=== PATIENT | female | born 1970 | race African-American/Black ===

== ENCOUNTER 2017-01-18 17:41 | Emergency (ER) | payer MEDICAID ==
[~2017-01-18] VITALS: Ht 175.3 cm; Wt 92.8 kg
[~2017-01-18 17:41] MED LIST: ESCI5TAB PO; ESTR1PAT79 TP; ESTRODIOL; IBUP-1222 PO; IBUP-1223 PO; IBUP200T48 PO; IRBE1TAB13 PO; NONE PER PT; OXYC1TAB9 PO; PROM25SU34 RC; TRAM300T15 PO; [UNRECOGNIZED DRUG - REMARK] VG
[2017-01-18] MEDS ORDERED: HYDROmorphone 1 MG/ML, 1ML IM STA (19:34)
[2017-01-18] MEDS ORDERED: HYDROmorphone 1 MG/ML, 1ML ONE (19:36)
[2017-01-18 20:09] VITALS: BP 170/98
[2017-01-18] MEDS ORDERED: HYDROmorphone 1 MG/ML, 1ML IM ONE (20:30)
== END 2017-01-18 20:19 | disposition home or self-care (01) ==
LOC: ED 20:13
DX: S29.012A Strain of muscle and tendon of back wall of thorax, initial encounter (principal); G89.29 Other chronic pain; I10 Essential (primary) hypertension; M54.31 Sciatica, right side; Z90.710 Acquired absence of both cervix and uterus; X58.XXXA Exposure to other specified factors, initial encounter; Y93.89 Activity, other specified; Y92.89 Other specified places as the place of occurrence of the external cause; Y99.8 Other external cause status
CPT/HCPCS: 72110; 96372; 99284; J1170

== ENCOUNTER → 2017-01-26 | Outpatient (CLI) | payer MEDICAID | END | disposition home or self-care (01) | LOC: CFH 15:08 | PROVIDERS: ATTEND Internal Medicine | DX: M51.24 Other intervertebral disc displacement, thoracic region (principal); M54.16 Radiculopathy, lumbar region | CPT/HCPCS: 72146 ==

== ENCOUNTER 2017-02-23 21:38 | Emergency (ER) | payer MEDICAID ==
[~2017-02-23] VITALS: Ht 175.3 cm; Wt 90.4 kg
[2017-02-23] MEDS ORDERED: DIAZEPAM 5 MG TABLET PO ONE (22:30)
[2017-02-23] MEDS ORDERED: HYDROcodone/APAP 5/325 TABLET ONE (22:30)
[2017-02-23] MEDS ORDERED: DIAZEPAM 5 MG TABLET ONE (22:30)
[2017-02-23] MEDS ORDERED: HYDROcodone/APAP 5/325 TABLET PO ONE (22:30)
[2017-02-24 00:51] VITALS: BP 169/105
== END 2017-02-24 00:56 | disposition home or self-care (01) ==
LOC: ED 02-24 00:25
DX: S16.1XXA Strain of muscle, fascia and tendon at neck level, initial encounter (principal); S09.90XA Unspecified injury of head, initial encounter; I10 Essential (primary) hypertension; G89.29 Other chronic pain; V49.9XXA Car occupant (driver) (passenger) injured in unspecified traffic accident, initial encounter; Y93.89 Activity, other specified; Y92.410 Unspecified street and highway as the place of occurrence of the external cause; Y99.8 Other external cause status
CPT/HCPCS: 70450; 72125; 99284

== ENCOUNTER → 2017-09-21 | Outpatient (CLI) | payer MEDICAID ==
[~2017-09-21] MED LIST changes: -IBUP200T48 PO; +IBUP200T49 PO
== END ==
LOC: CFH 15:29
PROVIDERS: ATTEND Nurse Practitioner
DX: M51.16 Intervertebral disc disorders with radiculopathy, lumbar region (principal)
CPT/HCPCS: 72120; 72148

== ENCOUNTER 2018-04-14 16:22 | Emergency (ER) | payer MEDICAID ==
[~2018-04-14] VITALS: Ht 175.3 cm; Wt 91.7 kg
[~2018-04-14 16:22] MED LIST changes: +OXYC-432 PO; -OXYC1TAB9 PO
[2018-04-14 17:12] LABS: BASOPHILS # (AUTO) 0.03 x10^3/uL (0-0.1); BASOPHILS % (AUTO) 1 % (0-1); EOSINOPHILS # (AUTO) 0.05 x10^3/uL (0-0.4); EOSINOPHILS % (AUTO) 1 % (1-7); LYMPHOCYTES # (AUTO) 1.81 x10^3/uL (1-3.4); LYMPHOCYTES % (AUTO) 29 % (22-44); MD NO; MEAN CORPUSCULAR HEMOGLOBIN 30.7 pg (27.0-34.8); MEAN CORPUSCULAR HGB CONC 33.1 g/dL (32.4-35.8); MEAN CORPUSCULAR VOLUME 92.8 fL (80-100); MEAN PLATELET VOLUME 9.2 fL (7.4-10.4); MONOCYTES % (AUTO) 5 % (2-9); NEUTROPHILS # (AUTO) 4.06 x10^3/uL (1.8-6.8); NEUTROPHILS % (AUTO) 65 % (42-75); PLATELET COUNT 256 x10^3/uL (130-400); RED BLOOD COUNT 4.74 x10^6/uL (3.82-5.3); RED CELL DISTRIBUTION WIDTH 14.1 % (9.6-15.2)
[2018-04-14 17:17] LABS: ALANINE AMINOTRANSFERASE 26 U/L (12-78); ANION GAP 4 mmol/L (5-15); CALCIUM 9.5 mg/dL (8.5-10.1); CHLORIDE 101 mmol/L (98-107); CREATININE 0.98 mg/dL (0.55-1.02)
[2018-04-14 17:19] LABS: ALKALINE PHOSPHATASE 135 U/L (45-117); BILIRUBIN,TOTAL 0.3 mg/dL (0.2-1.0); TOTAL PROTEIN 8.9 g/dL (6.4-8.2)
[2018-04-14] MEDS ORDERED: LABETALOL 5MG/ML, 20ML IVPush ONE (17:30)
[2018-04-14] MEDS ORDERED: LABETALOL 20 MG/4 ML ONE (17:30)
[2018-04-14] MEDS ORDERED: ONDANSETRON 2MG/ML, 2ML ONE (17:30)
[2018-04-14] MEDS ORDERED: CEFAZOLIN PMX 1GM/50ML 50 ML IV ONE (17:30)
[2018-04-14] MEDS ORDERED: SODIUM CHLORIDE FLUSH 10ML SYR IVF ONE (17:30)
[2018-04-14] MEDS ORDERED: ONDANSETRON 2MG/ML, 2ML IVPush ONE (17:30)
[2018-04-14] MEDS ORDERED: MORPHINE SULFATE 4 MG/ML, 1ML ONE ×2 (17:31→19:04)
[2018-04-14] MEDS ORDERED: POTASSIUM CHLORIDE 20 MEQ TAB.ER.PRT ONE (17:31)
[2018-04-14] MEDS ORDERED: CEFAZOLIN PMX 1GM/50ML 50 ML ONE (17:32)
[2018-04-14] MEDS: MORPHINE SULFATE 4 MG/ML, 1ML IVPush PRN ×2 (18:02→19:35)
[2018-04-14] MEDS ORDERED: POTASSIUM CHLORIDE 20 MEQ TAB.ER.PRT PO ONE (18:30)
[2018-04-14] MEDS ORDERED: MORPHINE SULFATE 4 MG/ML, 1ML IVPush ONE (19:00)
[2018-04-14] MEDS ORDERED: KETOROLAC 30 MG/1 ML IVPush ONE (19:00)
[2018-04-14] MEDS ORDERED: KETOROLAC 30 MG/1 ML ONE (19:04)
[2018-04-14 19:34] VITALS: BP 126/80
== END 2018-04-14 20:09 | disposition home or self-care (01) ==
LOC: ED 19:29
DX: L03.811 Cellulitis of head [any part, except face] (principal); L73.8 Other specified follicular disorders; I10 Essential (primary) hypertension; Z90.710 Acquired absence of both cervix and uterus
CPT/HCPCS: 36415; 70450; 80053; 85025; 93005; 96365; 96375; 96376; 99284; J0690; J1885; J2405

== ENCOUNTER 2018-05-21 12:57 | Emergency (ER) | payer MEDICAID ==
[~2018-05-21] VITALS: Ht 175.3 cm; Wt 91.9 kg
[~2018-05-21 12:57] MED LIST changes: +AMLO-150 PO; +POTASSIUM
[2018-05-21] MEDS ORDERED: DIPHENHYDRAMINE 50 MG/ML, 1ML IVPush ONE (14:00)
[2018-05-21] MEDS ORDERED: SODIUM CHLORIDE 0.9% 1,000ML IVBOLUS ONE (14:00)
[2018-05-21] MEDS ORDERED: SODIUM CHLORIDE FLUSH 10ML SYR IVF ONE (14:00)
[2018-05-21] MEDS ORDERED: METOCLOPRAMIDE 5 MG/ML, 2ML IVPush ONE (14:00)
[2018-05-21] MEDS ORDERED: KETOROLAC 30 MG/1 ML IVPush ONE (14:00)
[2018-05-21 14:08] LABS: BASOPHILS # (AUTO) 0.04 x10^3/uL (0-0.1); BASOPHILS % (AUTO) 1 % (0-1); EOSINOPHILS # (AUTO) 0.01 x10^3/uL (0-0.4); EOSINOPHILS % (AUTO) 0 % (1-7); LYMPHOCYTES # (AUTO) 1.14 x10^3/uL (1-3.4); LYMPHOCYTES % (AUTO) 22 % (22-44); MD NO; MEAN CORPUSCULAR HEMOGLOBIN 30.3 pg (27.0-34.8); MEAN CORPUSCULAR HGB CONC 32.8 g/dL (32.4-35.8); MEAN CORPUSCULAR VOLUME 92.6 fL (80-100); MEAN PLATELET VOLUME 10.4 fL (7.4-10.4); MONOCYTES # (AUTO) 0.16 x10^3/uL (0.2-0.8); MONOCYTES % (AUTO) 3 % (2-9); NEUTROPHILS # (AUTO) 3.85 x10^3/uL (1.8-6.8); NEUTROPHILS % (AUTO) 74 % (42-75); PLATELET COUNT 172 x10^3/uL (130-400); RED BLOOD COUNT 4.12 x10^6/uL (3.82-5.3); RED CELL DISTRIBUTION WIDTH 13.9 % (9.6-15.2)
[2018-05-21 14:17] LABS: ALANINE AMINOTRANSFERASE 15 U/L (12-78); ALBUMIN 3.6 g/dL (3.4-5.0); ANION GAP 7 mmol/L (5-15); BILIRUBIN, DIRECT 0.1 mg/dL (0.1-0.2); CALCIUM 8.6 mg/dL (8.5-10.1); CHLORIDE 111 mmol/L (98-107); CREATININE 0.99 mg/dL (0.55-1.02)
[2018-05-21 14:22] LABS: ALKALINE PHOSPHATASE 64 U/L (45-117); BILIRUBIN,INDIRECT 0.3 mg/dL (0.0-2.0); BILIRUBIN,TOTAL 0.4 mg/dL (0.2-1.0); TOTAL PROTEIN 7.4 g/dL (6.4-8.2)
--- NOTE | 2018-05-21 14:22 | NUR ---
CALLED FOR ROOM, NO ANSWER.
--- NOTE | 2018-05-21 14:28 | NUR ---
PT TO ROOM FROM LOBBY.
[2018-05-21] MEDS ORDERED: DIAZEPAM 5 MG TABLET PO ONE (15:00)
[2018-05-21] MEDS ORDERED: BENZTROPINE 1 MG/ML, 2 ML IM ONE (15:00)
[2018-05-21] MEDS ORDERED: DIPHENHYDRAMINE 50 MG/ML, 1ML ONE (15:20)
[2018-05-21] MEDS ORDERED: KETOROLAC 30 MG/1 ML ONE (15:20)
[2018-05-21] MEDS ORDERED: BENZTROPINE 1 MG TABLET ONE (15:21)
[2018-05-21] MEDS ORDERED: DIAZEPAM 5 MG TABLET ONE (15:21)
--- NOTE | 2018-05-21 15:35 | NUR ---
PT ARIVES TO ED WITH RIGHT SIDED NECK PAIN. PT REPORTS RECENTLY STARTED TRAMADOL FOR PAIN AND [place]. PT REPORTS THAT HER NECK PAIN STARTED ABOUT 3 DAYS AFTER THE MEDICATIONS. PT REPORTS NO TRAUMA OR NECK ISSUES BEFORE. HAS APPLIED COLD AND WARM COMPRESSES AT HOME. DID TAKE TYLENOL AT HOME FOR PAIN. PT REPORTS SHE CANNOT TAKE THE PAIN ANYMORE.
--- NOTE | 2018-05-21 15:58 | NUR ---
PT MEDICATED PER EMAR.
--- NOTE | 2018-05-21 17:24 | NUR ---
Patient/Caregiver given discharge instructions and they have confirmed that they understand the instructions. Patient ambulatory with steady gait.
[2018-05-21 17:25] VITALS: BP 146/93
== END 2018-05-21 17:27 | disposition home or self-care (01) ==
LOC: ED 15:39
DX: G24.3 Spasmodic torticollis (principal); D18.09 Hemangioma of other sites; I10 Essential (primary) hypertension; Z90.710 Acquired absence of both cervix and uterus
CPT/HCPCS: 36415; 72125; 80048; 80076; 83690; 84703; 85025; 96372; 96374; 96375; 99284; J0515; J1200; J1885

== ENCOUNTER 2018-11-25 10:54 | Emergency (ER) | payer MEDICAID ==
[~2018-11-25] VITALS: Ht 175.3 cm; Wt 91.1 kg
[2018-11-25 10:56] VITALS: BP 143/88
--- NOTE | 2018-11-25 11:22 | NUR ---
hoarse for a week. cough started 2 days ago with bilateral rib pain
[2018-11-25] MEDS ORDERED: DEXAMETHASONE 4 MG TABLET PO ONE (11:30)
[2018-11-25] MEDS ORDERED: DEXAMETHASONE 4 MG TABLET ONE (11:55)
== END 2018-11-25 13:27 | disposition home or self-care (01) ==
LOC: ED 13:13
DX: J20.8 Acute bronchitis due to other specified organisms (principal); B34.9 Viral infection, unspecified; I10 Essential (primary) hypertension; F17.210 Nicotine dependence, cigarettes, uncomplicated
CPT/HCPCS: 71046; 87081; 87147; 87880; 99284

== ENCOUNTER 2018-12-08 12:24 | Emergency (ER) | payer MEDICAID ==
[~2018-12-08] VITALS: Ht 175.3 cm; Wt 89.4 kg
[2018-12-08 12:34] VITALS: BP 158/94
--- NOTE | 2018-12-08 13:05 | NUR ---
DPatient/Caregiver given discharge instructions and they have confirmed that they understand the instructions. Patient ambulatory with steady gait.
== END 2018-12-08 13:07 | disposition home or self-care (01) ==
LOC: ED 13:00
DX: J30.2 Other seasonal allergic rhinitis (principal); I10 Essential (primary) hypertension
CPT/HCPCS: 99283

== ENCOUNTER 2019-03-25 08:24 | Emergency (ER) | payer MEDICAID ==
[~2019-03-25] VITALS: Ht 175.3 cm; Wt 91.0 kg
--- NOTE | 2019-03-25 09:05 | NUR ---
PT STATES UPSET STOMACH THROUGH THE NIGHT AND THIS MORNING EXPERIENCING BLURRY VISION AND LIGHTHEADEDNESS
[2019-03-25] MEDS ORDERED: MECLIZINE CHEWABLE 25 MG TAB ONE (09:20)
[2019-03-25 09:26] LABS: BASOPHILS # (AUTO) 0.02 x10^3/uL (0-0.1); BASOPHILS % (AUTO) 0 % (0-1); EOSINOPHILS # (AUTO) 0.08 x10^3/uL (0-0.4); EOSINOPHILS % (AUTO) 2 % (1-7); LYMPHOCYTES % (AUTO) 30 % (22-44); MD NO; MEAN CORPUSCULAR HEMOGLOBIN 30.5 pg (27.0-34.8); MEAN CORPUSCULAR HGB CONC 32.6 g/dL (32.4-35.8); MEAN CORPUSCULAR VOLUME 93.8 fL (80-100); MEAN PLATELET VOLUME 8.6 fL (7.4-10.4); MONOCYTES # (AUTO) 0.24 x10^3/uL (0.2-0.8); MONOCYTES % (AUTO) 7 % (2-9); NEUTROPHILS # (AUTO) 2.19 x10^3/uL (1.8-6.8); NEUTROPHILS % (AUTO) 61 % (42-75); PLATELET COUNT 219 x10^3/uL (130-400); RED BLOOD COUNT 4.27 x10^6/uL (3.82-5.3); RED CELL DISTRIBUTION WIDTH 14.2 % (9.6-15.2)
[2019-03-25] MEDS ORDERED: SODIUM CHLORIDE FLUSH 10ML SYR IVF ONE (09:30)
[2019-03-25] MEDS ORDERED: MECLIZINE CHEWABLE 25 MG TAB PO ONE (09:30)
[2019-03-25 09:34] LABS: ALBUMIN 3.4 g/dL (3.4-5.0); ANION GAP 5 mmol/L (5-15); CALCIUM 8.3 mg/dL (8.5-10.1); CHLORIDE 111 mmol/L (98-107)
[2019-03-25 09:37] LABS: ALANINE AMINOTRANSFERASE 18 U/L (12-78); ALKALINE PHOSPHATASE 140 U/L (45-117); BILIRUBIN,TOTAL 0.2 mg/dL (0.2-1.0); CREATININE 0.73 mg/dL (0.55-1.02); TOTAL PROTEIN 7.5 g/dL (6.4-8.2)
[2019-03-25 09:46] LABS: MICROSCOPIC NOT IND
[2019-03-25 09:49] LABS: CULTURE INDICATED? NO
--- NOTE | 2019-03-25 11:30 | NUR ---
PT STATES NO IMPROVEMENT IN SYMPTOMS DESPITE MED. AWAITING RE-EVAL
[2019-03-25 11:52] VITALS: BP 121/76
== END 2019-03-25 12:22 | disposition home or self-care (01) ==
LOC: ED 11:36
DX: H81.399 Other peripheral vertigo, unspecified ear (principal); H81.10 Benign paroxysmal vertigo, unspecified ear; K85.00 Idiopathic acute pancreatitis without necrosis or infection; F17.200 Nicotine dependence, unspecified, uncomplicated; I10 Essential (primary) hypertension; Z90.710 Acquired absence of both cervix and uterus
CPT/HCPCS: 36415; 70450; 76700; 80053; 81003; 83690; 85025; 93005; 99284

== ENCOUNTER 2019-04-16 16:54 | Emergency (ER) | payer MEDICAID ==
[~2019-04-16] VITALS: Ht 175.3 cm; Wt 92.3 kg
[2019-04-16] MEDS ORDERED: PHENAZOPYRIDINE 200 MG TABLET ONE (17:31)
--- NOTE | 2019-04-16 17:54 | NUR ---
ROOFING TECHNICIAN: PT TO ROOM FROM LOBBY, AMBULATORY
[2019-04-16 17:55] LABS: BASOPHILS # (AUTO) 0.04 x10^3/uL (0-0.1); BASOPHILS % (AUTO) 1 % (0-1); EOSINOPHILS # (AUTO) 0.08 x10^3/uL (0-0.4); EOSINOPHILS % (AUTO) 2 % (1-7); LYMPHOCYTES # (AUTO) 1.99 x10^3/uL (1-3.4); LYMPHOCYTES % (AUTO) 35 % (22-44); MD NO; MEAN CORPUSCULAR HEMOGLOBIN 31.1 pg (27.0-34.8); MEAN CORPUSCULAR HGB CONC 32.7 g/dL (32.4-35.8); MEAN CORPUSCULAR VOLUME 95.1 fL (80-100); MEAN PLATELET VOLUME 9.1 fL (7.4-10.4); MONOCYTES # (AUTO) 0.36 x10^3/uL (0.2-0.8); MONOCYTES % (AUTO) 6 % (2-9); NEUTROPHILS # (AUTO) 3.15 x10^3/uL (1.8-6.8); NEUTROPHILS % (AUTO) 56 % (42-75); PLATELET COUNT 269 x10^3/uL (130-400); RED BLOOD COUNT 4.49 x10^6/uL (3.82-5.3); RED CELL DISTRIBUTION WIDTH 14.4 % (9.6-15.2)
[2019-04-16 17:59] LABS: ALBUMIN 3.9 g/dL (3.4-5.0); ANION GAP 7 mmol/L (5-15); CALCIUM 8.8 mg/dL (8.5-10.1); CHLORIDE 111 mmol/L (98-107); CREATININE 0.86 mg/dL (0.55-1.02)
[2019-04-16] MEDS ORDERED: PHENAZOPYRIDINE 200 MG TABLET PO ONE (18:00)
--- NOTE | 2019-04-16 18:05 | NUR ---
PT AMB TO BR AND BACK TO ROOM WITH STEADY GAIT. UA SENT.
--- NOTE | 2019-04-16 18:11 | NUR ---
FIRST CONTACT WITH PT. PT C/O LOWER ABD AND LOWER BACK PAIN STARTING THIS AM, PAINFUL URINATION. DENIES BLOOD IN URINE/N/V/D. RECENTLY DX PANCREATITIS. PT'S AOX4. RESPS EVEN AND UNLABORED. BP/SPO2 MONITORS IN PLACE. CALL LIGHT WITHIN REACH.
[2019-04-16 18:12] VITALS: BP 140/90
[2019-04-16 18:25] LABS: MICROSCOPIC AUTO
[2019-04-16 18:28] LABS: CULTURE INDICATED? YES
--- NOTE | 2019-04-16 18:59 | NUR ---
REPORT GIVEN TO SHAMA/MAIK SMITH.
[2019-04-16] MEDS ORDERED: IBUPROFEN 600 MG TABLET PO ONE (19:00)
[2019-04-16] MEDS ORDERED: HYDROcodone/APAP 5/325 TABLET PO ONE (19:00)
[2019-04-16] MEDS ORDERED: CIPROFLOXACIN 500 MG TABLET PO ONE (19:00)
[2019-04-16] MEDS ORDERED: ONDANSETRON ODT 4 MG PO ONE (19:00)
[2019-04-16] MEDS ORDERED: ONDANSETRON ODT 4 MG ONE ×2 (19:13→19:40)
[2019-04-16] MEDS ORDERED: IBUPROFEN 600 MG TABLET ONE (19:13)
[2019-04-16] MEDS ORDERED: CIPROFLOXACIN 500 MG TABLET ONE (19:14)
[2019-04-16] MEDS ORDERED: HYDROcodone/APAP 5/325 TABLET ONE (19:14)
== END 2019-04-16 19:51 | disposition home or self-care (01) ==
LOC: ED 19:45
DX: N30.01 Acute cystitis with hematuria (principal); F17.200 Nicotine dependence, unspecified, uncomplicated; I10 Essential (primary) hypertension
CPT/HCPCS: 36415; 80048; 81001; 82040; 85025; 87086; 99284; Q0162

== ENCOUNTER 2019-05-09 19:43 | Emergency (ER) | payer MEDICAID ==
[~2019-05-09] VITALS: Ht 175.3 cm; Wt 93.1 kg
--- NOTE | 2019-05-09 19:57 | NUR ---
PT C/O ACUTE ON CHRONIC LBP AND ALL OVER ABD PAIN. PT HAD DIARRHEA X1 TODAY AND LAST BM PRIOR WAS THREE DAYS AGO. CONNECTED TO MONITORING. CALL LIGHT IN REACH. FAMILY AT BEDSIDE. AWAITING ORDERS AT THIS TIME.
--- NOTE | 2019-05-09 20:09 | NUR ---
REPORT GIVEN TO NASEEM SMITH
--- NOTE | 2019-05-09 20:12 | NUR ---
ASSUMING CARE OF PT. PT LAYING IN GURNEY IN OBVIOUS DISCOMFORT. PT REPORTS BILAT LOWER ABD PAIN, RADIATING TO THIGHS, "IT JUST HURTS SO BAD". DENIES VAGINAL BLEEDING OR DC/N/V. LMP "THREE YEARS AGO". PT AMBULATED STEADILY TO RESTROOM TO PROVIDE UA. SO AT BEDSIDE.
[2019-05-09] MEDS ORDERED: ONDANSETRON 2MG/ML, 2ML ONE (20:23)
[2019-05-09] MEDS ORDERED: MORPHINE SULFATE 4 MG/ML, 1ML ONE ×2 (20:24→21:48)
[2019-05-09] MEDS ORDERED: ONDANSETRON 2MG/ML, 2ML IVPush ONE (20:30)
[2019-05-09] MEDS ORDERED: MORPHINE SULFATE 4 MG/ML, 1ML IVPush ONE ×2 (20:30→22:00)
--- NOTE | 2019-05-09 20:30 | NUR ---
IV ESTABLISHED. LABS DRAWN. PT MEDCATED PER EMAR FOR PAIN/NAUSEA. PT REPORTS UNABLE TO PROVIDE UA, "I TRIED, I JUST COULDN'T GO" Addendum: 05/09/19 at 2102 by LWEGENER PLACED ON 2L BY [place] FOR CT
[2019-05-09 20:46] LABS: BASOPHILS % (AUTO) 0 % (0-1); EOSINOPHILS # (AUTO) 0.01 x10^3/uL (0-0.4); EOSINOPHILS % (AUTO) 0 % (1-7); LYMPHOCYTES # (AUTO) 0.47 x10^3/uL (1-3.4); LYMPHOCYTES % (AUTO) 10 % (22-44); MD NO; MEAN CORPUSCULAR HGB CONC 32.8 g/dL (32.4-35.8); MEAN CORPUSCULAR VOLUME 94.7 fL (80-100); MEAN PLATELET VOLUME 8.8 fL (7.4-10.4); MONOCYTES % (AUTO) 4 % (2-9); NEUTROPHILS # (AUTO) 4.08 x10^3/uL (1.8-6.8); NEUTROPHILS % (AUTO) 86 % (42-75); PLATELET COUNT 248 x10^3/uL (130-400); RED BLOOD COUNT 4.38 x10^6/uL (3.82-5.3); RED CELL DISTRIBUTION WIDTH 13.8 % (9.6-15.2)
[2019-05-09 20:58] LABS: ALBUMIN 3.5 g/dL (3.4-5.0); ANION GAP 6 mmol/L (5-15); CALCIUM 8.9 mg/dL (8.5-10.1); CHLORIDE 107 mmol/L (98-107)
[2019-05-09 21:01] LABS: ALANINE AMINOTRANSFERASE 21 U/L (12-78); ALKALINE PHOSPHATASE 140 U/L (45-117); BILIRUBIN,TOTAL 0.5 mg/dL (0.2-1.0); CREATININE 0.94 mg/dL (0.55-1.02)
--- NOTE | 2019-05-09 21:08 | NUR ---
CT PENDING HCG.
--- NOTE | 2019-05-09 21:17 | NUR ---
PT AMBULATED STEADILY TO BATHROOM TO PROVIDE UA. UA COLLECTED AND SENT TO LAB. PT CONTINUES TO CO PAIN. ERP AWARE. AWAITING ORDERS
[2019-05-09 21:31] LABS: MICROSCOPIC INDICATED
[2019-05-09 21:43] LABS: CULTURE INDICATED? NO
--- NOTE | 2019-05-09 21:53 | NUR ---
PT MEDICATED PER EMAR FOR CONTINUED PAIN, 12/29. REMAINS ON 2L BY [place] FOR SUPPORT SP MEDICATIONS
--- NOTE | 2019-05-09 22:03 | NUR ---
ERP AT BEDSIDE TO DISCUSS FINDINGS AND POC
[2019-05-09] MEDS ORDERED: DIAZEPAM 5 MG/ML, 2ML ONE (22:19)
--- NOTE | 2019-05-09 22:25 | NUR ---
PT MEDICATED PER EMAR FOR CONTINUED PAIN.. POC IS DC ONCE PAIN IS CONTROLLED
[2019-05-09] MEDS ORDERED: DIAZEPAM 5 MG/ML, 10ML VIAL IVPush ONE (22:30)
--- NOTE | 2019-05-09 22:47 | NUR ---
PT REPORTS SIGNIFICANT IMPROVEMENT IN PAIN WITH MEDICATIONS. PT MAINTAINING SPO2 >90% ON RA. IV DC'D. PT OFF MONITORING AND ASKED TO DRESS. SO AT BEDSIDE FOR ASSISTANCE. WHEELCHAIR PROVIDED. AWAITING DC INSTRUCTIONS.
[2019-05-09 22:48] VITALS: BP 137/80
--- NOTE | 2019-05-09 23:00 | NUR ---
PT AMBULATED STEADILY TO DC WITH RN AND SO. SO TO TRANSPORT PT HOME Addendum: 05/09/19 at 2318 by LWEGENER DC EDUCATION PROVIDED, PT DEMONSTRATES UNDERSTANDING.
== END 2019-05-09 23:20 | disposition home or self-care (01) ==
LOC: ED 20:04
DX: R10.84 Generalized abdominal pain (principal); M54.5 Low back pain; R10.31 Right lower quadrant pain; R11.0 Nausea; I10 Essential (primary) hypertension
CPT/HCPCS: 36415; 74176; 80053; 81001; 81025; 85025; 96374; 96375; 96376; 99284; J2270; J2405; J3360

== ENCOUNTER 2019-06-12 08:16 | Emergency (ER) | payer MEDICAID ==
[~2019-06-12] VITALS: Ht 177.8 cm; Wt 94.3 kg
[2019-06-12 08:21] VITALS: BP 143/88
--- NOTE | 2019-06-12 08:37 | NUR ---
LOW BACK PAIN ATRAUMATIC SNICE YEST, WAS BENDING AND PAIN STARTED. UNRELIEVED BY MARIJUANA/TRAMADOL/ROBAXIN. STIFF GAIT BUT AMBULATORY.
[2019-06-12] MEDS ORDERED: OXYcodone/APAP 5/325MG TABLET ONE (08:51)
[2019-06-12] MEDS ORDERED: KETOROLAC 30 MG/1 ML ONE (08:51)
[2019-06-12] MEDS ORDERED: DIAZEPAM 5 MG TABLET ONE (08:51)
--- NOTE | 2019-06-12 08:57 | NUR ---
in to medicate pt. pt asking for charge nurse "I just need a scan of my back. I don't want any meds until I get a scan in case I need to go to a different hospital." KRYS bergeron made aware. Dr. Zepeda will go in to see pt. Pt updated. Pt rolls her eyes and sts "Oh my God". call vincent in reach. as
[2019-06-12] MEDS ORDERED: OXYcodone/APAP 5/325MG TABLET PO ONE (09:00)
[2019-06-12] MEDS ORDERED: DIAZEPAM 5 MG TABLET PO ONE (09:00)
[2019-06-12] MEDS ORDERED: KETOROLAC 30 MG/1 ML IM ONE (09:00)
--- NOTE | 2019-06-12 09:20 | NUR ---
ordered xr. teradata developer in for pt, pt refused. wants to speak w/ "whoever is in charge, the chief". Refusing to elaborate to this RN. smelter charger Bill notified, in speaking w/ pt currently. as
--- NOTE | 2019-06-12 09:40 | NUR ---
pt medicated. pt more calm and cooperative after speaking w/ rn telephone triage. xr notified that pt is ready. call vincent in reach. as
--- NOTE | 2019-06-12 10:10 | NUR ---
pt oob to bathroom. pt much more receptive to plan of care and cooperative. gait steady but stiff. as
--- NOTE | 2019-06-12 11:00 | NUR ---
xr pending ua sent. as
--- NOTE | 2019-06-12 11:04 | NUR ---
xr wnl. pt denies needs at this time. call vincent in reach. as
[2019-06-12 11:05] LABS: MICROSCOPIC NOT IND
[2019-06-12 11:09] LABS: CULTURE INDICATED? NO
== END 2019-06-12 11:40 | disposition home or self-care (01) ==
LOC: ED 10:19
DX: G89.29 Other chronic pain (principal); M54.42 Lumbago with sciatica, left side; M54.41 Lumbago with sciatica, right side; I10 Essential (primary) hypertension
CPT/HCPCS: 72110; 81003; 96372; 99284; J1885

== ENCOUNTER 2019-09-30 11:43 | Emergency (ER) | payer MEDICAID ==
[~2019-09-30] VITALS: Ht 175.3 cm; Wt 59.9 kg
--- NOTE | 2019-09-30 12:15 | NUR ---
PT A&OX4, RESP EVEN & UNLABORED, SPEECH CLEAR, SKIN WNL. STATES SHE WOKE W/ GE[place], EXPERIENCED DIZZINESS "RIGHT AWAY", BLURRED VISION. DENIES N/V, OTHER PAIN. BP ELEVATED AT HOME 156/100, 160'S. LAST ORAL INTAKE: 0200 TODAY. LMP: N/A - HYSTERECTOMY.
[2019-09-30] MEDS ORDERED: VENL37.58 PO (12:27)
[2019-09-30] MEDS ORDERED: AMLO10TA8 PO (12:27)
--- NOTE | 2019-09-30 12:27 | NUR ---
PA BEDSIDE FOR EXAM. PT ADMITS TO SKIPPING MEALS FOR WEIGHT CONTROL, POOR WATER INTAKE. REPORTS CHRONIC BACK PAIN.
[2019-09-30] MEDS ORDERED: SERTRALINE (12:32)
--- NOTE | 2019-09-30 12:43 | NUR ---
IV ATTEMPTED X1; UNSUCCESSFULL.
--- NOTE | 2019-09-30 12:46 | NUR ---
PT TO CT PER JOMAR
[2019-09-30] MEDS ORDERED: DIPHENHYDRAMINE 50 MG/ML, 1ML ONE (12:50)
[2019-09-30] MEDS ORDERED: PROCHLORPERAZINE 5 MG/ML, 2ML ONE (12:50)
[2019-09-30 12:55] LABS: MEAN CORPUSCULAR HEMOGLOBIN 30.5 pg (27.0-34.8); MEAN CORPUSCULAR HGB CONC 32.8 g/dL (32.4-35.8); MEAN CORPUSCULAR VOLUME 92.9 fL (80-100); MEAN PLATELET VOLUME 8.6 fL (7.4-10.4); PLATELET COUNT 240 x10^3/uL (130-400); RED BLOOD COUNT 4.47 x10^6/uL (3.82-5.3); RED CELL DISTRIBUTION WIDTH 14.9 % (9.6-15.2)
[2019-09-30 12:59] LABS: ALBUMIN 3.7 g/dL (3.4-5.0); ANION GAP 6 mmol/L (5-15); CALCIUM 8.9 mg/dL (8.5-10.1); CHLORIDE 108 mmol/L (98-107); CREATININE 0.94 mg/dL (0.55-1.02)
[2019-09-30] MEDS ORDERED: PROCHLORPERAZINE 5 MG/ML, 2ML IVPush ONE (13:00)
[2019-09-30] MEDS ORDERED: SODIUM CHLORIDE 0.9% 1,000ML IVBOLUS ONE (13:00)
[2019-09-30] MEDS ORDERED: DIPHENHYDRAMINE 50 MG/ML, 1ML IVPush ONE (13:00)
--- NOTE | 2019-09-30 13:15 | NUR ---
IV ATTEMPTED X2; UNSUCCESSFUL. ASSISTANCE REQUESTED.
--- NOTE | 2019-09-30 13:24 | NUR ---
NS NANDA, BENJEAN PIERREL & COMPANZINE GIVEN PER EMAR. IV SITE PATENT.
--- NOTE | 2019-09-30 13:26 | NUR ---
REPORTS DECREASE IN GEORGES PAIN.
[2019-09-30 14:02] LABS: MD YES
[2019-09-30 14:19] LABS: LYMPH#(MANUAL) 2.24 x10^3/uL (1-3.4); LYMPHS% (MANUAL) 43 % (22-44); MONOS% (MANUAL) 2 % (2-9); SEG#(MANUAL) 2.65 x10^3/uL (1.8-6.8); SEGS% (MANUAL) 51 % (42-75)
[2019-09-30 14:20] LABS: BASOS#(MANUAL) 0.05 x10^3/uL (0-0.1); BASOS% (MANUAL) 1 % (0-1); EOS#(MANUAL) 0.16 x10^3/uL (0.0-0.4); EOS% (MANUAL) 3 % (1-7)
[2019-09-30 14:21] LABS: PMNS WITH VACUOLES 1+
[2019-09-30 14:22] LABS: <PLATELET ESTIMATE> ADEQUATE; <PLT MORPHOLOGY> NORMAL PLT MORPH; <RBC MORPHOLOGY> NORMAL
--- NOTE | 2019-09-30 14:24 | NUR ---
NS INFUSED. PT REPORTS SIGNIFICANT IMPROVEMENT IN GEORGES PAIN.
[2019-09-30 14:37] VITALS: BP 137/86
== END 2019-09-30 14:39 | disposition home or self-care (01) ==
LOC: ED 14:15
DX: G43.009 Migraine without aura, not intractable, without status migrainosus (principal); R42 Dizziness and giddiness; I11.9 Hypertensive heart disease without heart failure; H53.8 Other visual disturbances; F17.200 Nicotine dependence, unspecified, uncomplicated
CPT/HCPCS: 36415; 70450; 80048; 82040; 85025; 93005; 96361; 96374; 96375; 99285; J0780; J1200; J7030

== ENCOUNTER 2019-12-02 12:45 | Emergency (ER) | payer MEDICAID ==
[~2019-12-02] VITALS: Ht 175.3 cm; Wt 94.8 kg
[~2019-12-02 12:45] MED LIST changes: +AMLO10TA8 PO; +SERTRALINE; +VENL37.58 PO
[2019-12-02] MEDS ORDERED: METOCLOPRAMIDE 5 MG/ML, 2ML ONE (13:25)
[2019-12-02] MEDS ORDERED: DIPHENHYDRAMINE 50 MG/ML, 1ML ONE (13:25)
[2019-12-02] MEDS ORDERED: SODIUM CHLORIDE FLUSH 10ML SYR IVF ONE (13:30)
[2019-12-02] MEDS ORDERED: DIPHENHYDRAMINE 50 MG/ML, 1ML IV ONE (13:30)
[2019-12-02] MEDS ORDERED: METOCLOPRAMIDE 5 MG/ML, 2ML IVPush ONE (13:30)
[2019-12-02] MEDS ORDERED: SODIUM CHLORIDE 0.9% 1,000ML IVBOLUS ONE (13:30)
--- NOTE | 2019-12-02 13:43 | NUR ---
PT CAME IN CO [place] X 2 DAYS. PT SEEN BY . MEDICATED PER JUL. 2 WARM BLANKETS PROVIDED. LIGHTS TURNED OFF. PT RESTING IN [facility].
[2019-12-02 13:48] LABS: MEAN CORPUSCULAR HEMOGLOBIN 29.8 pg (27.0-34.8); MEAN CORPUSCULAR HGB CONC 31.8 g/dL (32.4-35.8); MEAN CORPUSCULAR VOLUME 93.7 fL (80-100); PLATELET COUNT 267 x10^3/uL (130-400); RED BLOOD COUNT 4.84 x10^6/uL (3.82-5.3); RED CELL DISTRIBUTION WIDTH 14.6 % (9.6-15.2)
[2019-12-02 13:58] LABS: ALBUMIN 4.3 g/dL (3.4-5.0); ANION GAP 7 mmol/L (5-15); CALCIUM 9.4 mg/dL (8.5-10.1); CHLORIDE 106 mmol/L (98-107)
[2019-12-02 14:04] LABS: ALANINE AMINOTRANSFERASE 27 U/L (12-78); ALKALINE PHOSPHATASE 139 U/L (45-117); BILIRUBIN,TOTAL 0.3 mg/dL (0.2-1.0); TOTAL PROTEIN 8.8 g/dL (6.4-8.2)
[2019-12-02 14:11] VITALS: BP 126/77
--- NOTE | 2019-12-02 14:12 | NUR ---
PT RESTING IN [facility]. VSS. REPORTS PAIN IMPROVEMENT
[2019-12-02 14:27] LABS: BASOPHILS # (AUTO) 0.05 x10^3/uL (0-0.1); BASOPHILS % (AUTO) 1 % (0-1); EOSINOPHILS # (AUTO) 0.09 x10^3/uL (0-0.4); EOSINOPHILS % (AUTO) 2 % (1-7); LYMPHOCYTES # (AUTO) 2.18 x10^3/uL (1-3.4); LYMPHOCYTES % (AUTO) 39 % (22-44); MD SCAN; MONOCYTES # (AUTO) 0.28 x10^3/uL (0.2-0.8); MONOCYTES % (AUTO) 5 % (2-9); NEUTROPHILS # (AUTO) 2.98 x10^3/uL (1.8-6.8); NEUTROPHILS % (AUTO) 53 % (42-75)
[2019-12-02 14:44] LABS: MICROSCOPIC NOT IND
== END 2019-12-02 15:26 | disposition home or self-care (01) ==
LOC: ED 13:11
DX: G43.C0 Periodic headache syndromes in child or adult, not intractable (principal); R42 Dizziness and giddiness; R10.84 Generalized abdominal pain; R11.0 Nausea; H53.149 Visual discomfort, unspecified; I10 Essential (primary) hypertension; F17.200 Nicotine dependence, unspecified, uncomplicated; Z90.710 Acquired absence of both cervix and uterus
CPT/HCPCS: 36415; 80053; 81003; 83690; 85025; 93005; 96361; 96374; 96375; 99284; J1200; J2765; J7030

== ENCOUNTER 2020-11-15 07:15 | Emergency (ER) | payer MEDICAID ==
[~2020-11-15] VITALS: Ht 175.3 cm; Wt 88.5 kg
[~2020-11-15 07:15] MED LIST changes: +AMLO-211 PO; -AMLO10TA8 PO; -ESCI5TAB PO; +ESCI5TAB8 PO; -OXYC-432 PO; +OXYC1TAB18 PO
[2020-11-15] MEDS ORDERED: DEXAMETHASONE 4 MG/ML, 1ML ONE (07:49)
[2020-11-15] MEDS ORDERED: ALBUTEROL SULFATE 2.5 MG/3 ML ONE (07:50)
[2020-11-15] MEDS ORDERED: DEXAMETHASONE 4 MG/ML, 1ML PO ONE (08:00)
[2020-11-15] MEDS ORDERED: ALBUTEROL SULFATE 2.5 MG/3 ML NPPB ONE (08:00)
[2020-11-15 09:07] VITALS: BP 130/86
== END 2020-11-15 09:14 | disposition home or self-care (01) ==
LOC: ED 09:00
DX: B34.9 Viral infection, unspecified (principal); Z20.822 Contact with and (suspected) exposure to COVID-19; F17.210 Nicotine dependence, cigarettes, uncomplicated; G43.909 Migraine, unspecified, not intractable, without status migrainosus; I10 Essential (primary) hypertension
CPT/HCPCS: 71045; 94640; 99284; 99406; J1100; J7613; U0003; U0005

== ENCOUNTER 2021-02-05 17:14 | Emergency (ER) | payer MEDICAID ==
[~2021-02-05] VITALS: Ht 175.3 cm; Wt 93.7 kg
[2021-02-05 17:22] VITALS: BP 153/88
== END 2021-02-05 21:26 | disposition left against medical advice (07) ==
LOC: ED 21:19
DX: R42 Dizziness and giddiness (principal); Z53.21 Procedure and treatment not carried out due to patient leaving prior to being seen by health care provider